=== PATIENT | male | born 1970 | race Caucasian/White ===

== ENCOUNTER 2022-10-20 01:26 | Emergency (ER) | payer MEDICAID, SELFPAY ==
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
[2022-10-20 01:37] VITALS: BP 97/55; PULSE 73; RESP 17; TEMP 36.4; O2SAT 98
== END 2022-10-20 01:51 | disposition home or self-care (01) ==
LOC: ED 02:01
PROVIDERS: Emergency Provider Emergency Medicine
DX: S60.512A Abrasion of left hand, initial encounter (principal); S60.511A Abrasion of right hand, initial encounter; S61.412A Laceration without foreign body of left hand, initial encounter; Z00.8 Encounter for other general examination
CPT/HCPCS: 99281